=== PATIENT | female | born 1975 | race Caucasian/White ===

== ENCOUNTER 2017-07-26 06:26 | Emergency (ER) | payer OTHER ==
[~2017-07-26] VITALS: Ht 175.3 cm; Wt 63.5 kg
[~2017-07-26 06:26] MED LIST: BUDESONIDE EC3 MG PO; CHOLESTYRAMINE L4 GM PO; EFFEXOR XR75 MG PO; IBUPROFEN800 MG PO; IMODIUM MULTI-1 EACH PO; KEFLEX500 MG PO; KLOR-CON 1010 MEQ PO; LEVO-T112 MCG PO; METOPROLOL TART25 MG PO; PEPTO-BISMOL262 MG PO; VITAMIN D250000 UNIT PO; ZYRTEC10 M3 PO
[2017-07-26] MEDS ORDERED: LEVOTHYROXINE100 MCG PO (06:39)
[2017-07-26] MEDS ORDERED: DHEA25 MG PO (06:42)
[2017-07-26] MEDS ORDERED: LORATADINE10 M2 PO (06:45)
[2017-07-26] MEDS ORDERED: NORCO 5-325 TA1 EACH PO (06:45)
[2017-07-26] MEDS ORDERED: ZOFRAN ODT4 MG PO (09:06)
--- NOTE | 2017-07-27 22:28 | EKG ---
[facility] [address] [facility] [place] [address] Signed Normal sinus rhythm Nonspecific ST abnormality Abnormal ECG No previous ECGs available Confirmed by BO MORALES MD ([id number] on 07/27/2017 10:28:01 PM Electronically Signed By: BO MORALES MD 07/27/17 2228 PATIENT NAME: ZAY BAUGH Electrocardiogram DATE OF : 75 PHYSICIAN: BO MORALES MD REPORT #: [id number] REPORT IS CONFIDENTIAL AND NOT TO BE RELEASED WITHOUT AUTHORIZATION
[2017-09-03] MEDS ORDERED: OMEGA-31000 MG PO (13:59)
[2017-09-03] MEDS ORDERED: POTASSIUM CHLO20 ME2 PO (14:00)
== END 2017-07-26 09:13 | disposition home or self-care (01) ==
LOC: ED 06:26
DX: E03.9 Hypothyroidism, unspecified (principal); F41.9 Anxiety disorder, unspecified; G47.00 Insomnia, unspecified; Z88.8 Allergy status to other drugs, medicaments and biological substances; Z90.49 Acquired absence of other specified parts of digestive tract; Z79.899 Other long term (current) drug therapy
CPT/HCPCS: 80053; 81001; 84439; 84443; 85025; 93005; 93010; 99284